=== PATIENT | male | born 1980 | race Caucasian/White ===

== ENCOUNTER 2016-04-16 14:13 | Emergency (ER) | payer MEDICAID ==
[~2016-04-16] VITALS: Ht 175.3 cm; Wt 78.1 kg
--- NOTE | 2016-04-16 15:18 | NUR ---
PT INSISTS THAT HE PICKED UP 1-2 NEW MEDS FROM [facility] EITHER YEST OR DAY BEFORE. [facility] CALLED & THEY DENY ANY NEW MEDS SINCE 03/30/16. CL
[2016-04-16 16:09] VITALS: BP 121/96
== END 2016-04-16 15:35 | disposition home or self-care (01) ==
LOC: EDUNIT# 14:13 → ED 14:15
DX: M79.642 Pain in left hand (principal)
CPT/HCPCS: 73120; 99282

== ENCOUNTER 2016-05-28 11:23 | Emergency (ER) | payer MEDICAID ==
[~2016-05-28] VITALS: Ht 175.3 cm; Wt 80.0 kg
--- OUTSIDE RECORDS SUMMARY | 2016-05-28 11:29 | XMS REPORT | Continuity of Care Document ---
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 [id number] Vanita Araujo [employer] Chief Complaint and Reason for Visit Chief Complaint Pain Reason for Visit [id number] Problems Medical Problems Problem Onset Date Status Nausea and vomiting 03/21/2013 Resolved Fall on same level from slipping, tripping or stumbling ~06/01/2013 Resolved Knee pain ~06/21/2013 Resolved Shoulder pain ~07/25/2013 Resolved Schizoaffective disorder Unknown Active Schizophrenia Unknown Active Adult attention deficit hyperactivity disorder Unknown Active Tardive dyskinesia Unknown Active Asthma ~08/08/2013 Active Vomiting Unknown Resolved Gastroesophageal reflux disease ~09/20/2013 Active Sore of penis ~10/08/2013 Resolved Penis pain ~10/08/2013 Resolved Contusion of shoulder, left Unknown Resolved Shoulder injury Unknown Resolved Anxiety attack ~04/21/2014 Resolved Elevated blood sugar ~06/21/2014 Active Diarrhea ~06/21/2014 Active Abdominal pain ~06/21/2014 Active Pierced tongue infection ~06/28/2014 Active Medications Medication Dose Route Sig Days/Qty Instructions Order Date Discontinued Date Status Albuterol Sulfate Unknown Dose RESPIRATORY (INHALATION) THREE TIMES A DAY 03/21/13 Active Ondansetron 4 Mg ORAL EVERY 6 HOURS 20 Qty One po q6hrs prn significant vomiting 03/21/13 06/03/13 Discontinued Haloperidol Unknown Dose ORAL TWICE A DAY 06/03/13 Active Buspirone Hcl 0 ORAL DAILY 06/03/13 06/21/14 Discontinued Ibuprofen (Motrin) 800 Mg ORAL THREE TIMES A DAY 06/03/13 06/22/13 Discontinued Albuterol Sulfate 8.5 Gm RESPIRATORY (INHALATION) 06/03/13 Discontinued Ibuprofen (Motrin) 200 Mg ORAL THREE TIMES A DAY 06/22/13 09/20/13 Discontinued Acetaminophen 500 Mg ORAL THREE TIMES A DAY 06/22/13 09/20/13 Discontinued Acetaminophen 1,000 Mg ORAL NEEDED 09/20/13 04/13/14 Discontinued Ondansetron 4 Mg ORAL q6 PRN VOMITING 12 Qty 09/20/13 04/13/14 Discontinued Famotidine 20 Mg ORAL TWICE A DAY 20 Qty 09/20/13 10/09/13 Discontinued [Phsyciatric Meds] 0 DAILY 10/09/13 06/21/14 Discontinued Doxycycline Hyclate 100 Mg ORAL TWICE A DAY 20 Qty 10/09/13 04/13/14 Discontinued Naproxen 500 Mg ORAL TWICE A DAY 20 Qty 10/09/13 04/13/14 Discontinued Paroxetine Hcl Unknown Dose ORAL DAILY 06/21/14 Active Metformin Hcl (Glucophage) 500 Mg ORAL DAILY 30 Qty 06/21/14 Active Amoxicillin/Potassium Clav 1 Each ORAL TWICE A DAY 20 Qty 06/28/14 Active Social History No social history. Hospital Discharge Instructions No hospital discharge instructions. Plan of Care Discharge Date 06/28/14 10:55pm Disposition 01 HOME OR SELF-CARE Condition at Discharge Stable Prescriptions See Medications Section Additional Instructions/Education Augmentin as directed. ED SUNITA if any worse. Do not use tongue piercing. Some of your test results may not be complete prior to your leaving the Emergency Department. The Emergency Department is not authorized to give test results over the phone. Please contact the doctor's office listed in this packet of information for your final results. Follow up with your primary care physician or return to the Emergency Department for worsening or worrisome symptoms. * Emergency Department phone number: [phone], x [phone]* MEDICAL RECORD If you need copies of your X-rays, call [phone]. If you need copies of your medical record, including lab results, a signed authorization for release of records will be required. A telephone call for release of Health Information is not allowed. BILLING Billing can sometimes be confusing and frustrating. To help avoid confusion in the future, please take a moment to acquaint yourself with the billing parties for services. SERVICE BILLING [facility] Emergency Room Services [facility] Physician Services [facility] X-[facility] Patients will receive bills for services from the appropriate provider. If you have any questions about your [facility] bill, our staff will be happy to assist you. Please call [phone], and ask for the billing department. THANK YOU for choosing [facility] as your emergency care provider! Functional Status No functional status results. Allergies, Adverse Reactions, Alerts Allergen Type Severity Reaction Status Last Updated No Known Drug Allergies Active 03/21/13 Immunizations No immunization records. Vital Signs Acute Vital Signs Vital Response Date/Time Temperature (Fahrenheit) 97.8 Pulse 115 bpm Respirations 20 Height 5 ft 10 in Weight 177 lb Body Mass Index 25.0 kg/m^2 Results Test Source Date Result Interp. Ref. Range Comments Activated Partial Thromboplast Time September 20, 2013 4:50pm 27.5 SEC N 25.0 -39.0 Alanine Aminotransferase (ALT/SGPT) June 21, 2014 10:51am 23 U/L L 30- 65 Albumin June 21, 2014 10:51am 4.3 g/dL N 3.4-5.0 Albumin/Globulin Ratio June 21, 2014 10:51am 1.653 N 1.1-1.8 Alkaline Phosphatase June 21, 2014 10:51am 66 U/L N 38-126 Amylase Level June 21, 2014 10:51am 54 U/L N 25-115 Anion Gap June 21, 2014 10:51am 14.9 MEQ/L N 3-15 Aspartate Amino Transf (AST/SGOT) June 21, 2014 10:51am 20 U/L N 15-37 BUN/Creatinine Ratio June 21, 2014 10:51am 13 N 10-20 Band Neutrophils % March 21, 2013 12:00pm 0 % N 0-6 Collected by nurse? N Basophils # (Auto) June 21, 2014 10:51am 0.0 10^3uL Basophils % (Manual) March 21, 2013 12:00pm 0 % N 0-2 Collected by nurse? N Basophils (%) (Auto) June 21, 2014 10:51am 0 % N 0-2 Blood Urea Nitrogen June 21, 2014 10:51am 14 mg/dL N 7-18 Calcium Level June 21, 2014 10:51am 9.6 mg/dL N 8.8-10.8 Calculated Osmolality June 21, 2014 10:51am 274 mosm/L L 280-300 Carbon Dioxide Level June 21, 2014 10:51am 21 mmol/L L 22-29 Chloride Level June 21, 2014 10:51am 107 mmol/L N 98-108 Creatinine June 21, 2014 10:51am 1.07 mg/dL N 0.8-1.5 Differential Total Cells Counted March 21, 2013 12:00pm 100 Collected by nurse? N Eosinophils # March 21, 2013 12:00pm 0.0 # Collected by nurse? N Eosinophils # (Auto) June 21, 2014 10:51am 0.1 10^3uL Eosinophils % (Manual) March 21, 2013 12:00pm 0 % N 0-4 Collected by nurse? N Eosinophils (%) (Auto) June 21, 2014 10:51am 1 % N 0-4 Gastric Fluid Occult Blood March 21, 2013 1:50pm Positive H Negative Glucose Level June 21, 2014 10:51am 211 mg/dL DH 70-110 Hematocrit June 21, 2014 10:51am 45.10 % N 39.00-50.00 Hemoglobin June 21, 2014 10:51am 15.5 g/dL N 13.5-17.0 Influenza Virus Type A Antibody April 21, 2014 1:10pm Negative Influenza Virus Type B Antibody April 21, 2014 1:10pm Negative Lipase June 21, 2014 10:51am 81 U/L N 23-300 Lymphocytes # March 21, 2013 12:00pm 1.1 # Collected by nurse? N Lymphocytes # (Auto) June 21, 2014 10:51am 2.6 X10^3 Lymphocytes % (Manual) March 21, 2013 12:00pm 24 % N 20-46 Collected by nurse? N Lymphocytes (%) (Auto) June 21, 2014 10:51am 28 % N 20-46 Mean Corpuscular Hemoglobin June 21, 2014 10:51am 27.6 PG N 26.0-34.0 Mean Corpuscular Hemoglobin Concent June 21, 2014 10:51am 34.4 g/dL N 31.0-37.0 Mean Corpuscular Volume June 21, 2014 10:51am 80 FL N 80-100 Mean Platelet Volume June 21, 2014 10:51am 10.3 FL H 6.0-9.5 Monocytes # March 21, 2013 12:00pm 0.8 # Collected by nurse? N Monocytes # (Auto) June 21, 2014 10:51am 0.4 X10^3 Monocytes % (Manual) March 21, 2013 12:00pm 21 % H 3-11 Collected by nurse? N Monocytes (%) (Auto) June 21, 2014 10:51am 5 % N 3-11 Neutrophils # March 21, 2013 12:00pm 2.5 # Collected by nurse? N Neutrophils # (Auto) June 21, 2014 10:51am 6.1 X10^3 Neutrophils (%) (Auto) June 21, 2014 10:51am 66 % N 51-67 Platelet Count June 21, 2014 10:51am 263 10^3uL N 150-450 Potassium Level June 21, 2014 10:51am 4.0 mmol/L N 3.5-5.1 Prothromb Time International Ratio September 20, 2013 4:50pm 1.0 N 0.8-1.4 Prothrombin Time September 20, 2013 4:50pm 13.6 SEC N 12.3-14.4 Rapid Plasma Reagin October 09, 2013 1:00am Non-reactive () Red Blood Count June 21, 2014 10:51am 5.62 10^6uL H 4.50-5.50 Red Cell Distribution Width June 21, 2014 10:51am 13.0 % N 11.8-15.6 Segmented Neutrophils % March 21, 2013 12:00pm 55 % N 51-67 Collected by nurse? N Sodium Level June 21, 2014 10:51am 138 mmol/L N 135-150 Total Bilirubin June 21, 2014 10:51am 0.7 mg/dL DN 0.1-1.0 Total Protein June 21, 2014 10:51am 6.9 g/dL N 6.4-8.5 Ur Tricyclic Antidepressants Screen June 21, 2014 10:40am Negative Negative Urine collection method Clean Catch Urine Amphetamines Screen June 21, 2014 10:40am Negative Negative Urine collection method Clean Catch Urine Barbiturates Screen June 21, 2014 10:40am Negative Negative Urine collection method Clean Catch Urine Benzodiazepines Screen June 21, 2014 10:40am Negative Negative Urine collection method Clean Catch Urine Bilirubin June 21, 2014 10:40am Negative Negative Urine collection method Clean Catch Urine Blood October 09, 2013 12:00am Negative Negative Urine collection method Clean Catch Urine Clarity June 21, 2014 10:40am Clear Urine collection method Clean Catch Urine Cocaine Screen June 21, 2014 10:40am Negative Negative Urine collection method Clean Catch Urine Collection Type June 21, 2014 10:40am Clean catch Urine collection method Clean Catch Urine Color June 21, 2014 10:40am Yellow Urine collection method Clean Catch Urine Glucose (UA) June 21, 2014 10:40am Trace H Negative Urine collection method Clean Catch Urine Ketones June 21, 2014 10:40am Negative Negative Urine collection method Clean Catch Urine Leukocyte Esterase June 21, 2014 10:40am Negative Negative Urine collection method Clean Catch Urine Methamphetamines Screen June 21, 2014 10:40am Negative NEGATIVE Urine collection method Clean Catch Urine Nitrite June 21, 2014 10:40am Negative Negative Urine collection method Clean Catch Urine Opiates Screen June 21, 2014 10:40am Negative Negative Urine collection method Clean Catch Urine Phencyclidine Screen June 21, 2014 10:40am Negative Negative Phencyclidine testing by this method can showcross-reactivity with several common medications such as venlafaxine, dextromethorphan, and diphenhydramine. Submission of any positive sample for confirmatory testing is recommended. Urine Propoxyphene Screen June 21, 2014 10:40am Negative NEGATIVE Results of this screen are qualitative and are presumptiveresults. A more specific method (i.e. GC/MS) must be used if confirmation of results is indicated. Urine Protein June 21, 2014 10:40am Negative Negative Urine collection method Clean Catch Urine Specific [place] June 21, 2014 10:40am 1.025 1.005-1.030 Urine collection method Clean Catch Urine Urobilinogen June 21, 2014 10:40am 0.2 mg/dL 0.2-1.0 Urine collection method Clean Catch Urine pH June 21, 2014 10:40am 5.5 5.0 - 8.0 Urine collection method Clean Catch White Blood Count June 21, 2014 10:51am 9.28 10^3uL N 4.0-11.0 Estimat Glomerular Filtration Rate June 21, 2014 10:51am 96.9 Urine Oxycodone Screen June 21, 2014 10:40am Negative NEGATIVE Urine collection method Clean Catch Blood Morphology Comment March 21, 2013 12:00pm Normal NORMAL Collected by nurse? N Urine Methadone Screen June 21, 2014 10:40am Negative Negative Urine collection method Clean Catch Urine Cannabinoids Screen June 21, 2014 10:40am Positive H Negative Urine collection method Clean Catch Estimated GFR (Non- June 21, 2014 10:51am 80.1 Urine RBC (Auto) June 21, 2014 10:40am Negative Negative Urine collection method Clean Catch Absolute Band Neutrophils March 21, 2013 12:00pm 0.0 # Collected by nurse? N Calcium/Ionized Calcium Ratio June 21, 2014 10:51am 4.3 mg/dL N 3.8- 4.6 Procedures Procedure Status Date Provider(s) ROUTINE VENIPUNCTURE completed 06/21/14 X-RAY EXAM SERIES ABDOMEN completed 06/21/14 COMPREHEN METABOLIC PANEL completed 06/21/14 DRUG SCREEN CLASS LIST A completed 06/21/14 URINALYSIS AUTO W/O SCOPE completed 06/21/14 ASSAY OF AMYLASE completed 06/21/14 ASSAY OF LIPASE completed 06/21/14 COMPLETE CBC W/AUTO DIFF WBC completed 06/21/14 MEASURE BLOOD OXYGEN LEVEL completed 06/21/14 HYDRATE IV INFUSION ADD-ON completed 06/21/14 THER/PROPH/DIAG INJ IV PUSH completed 06/21/14 EMERGENCY DEPT VISIT completed 06/21/14 completed 06/21/14 completed 06/21/14 Encounters Encounter Location Date/Time Departed Emergency Room [facility] 06/28/14 10:17pm Departed Emergency Room [facility] 06/21/14 10:25am Recent Diagnosis
--- NOTE | 2016-05-28 12:04 | NUR ---
This nurse calls [facility] Control - relays information to Dr. Funes
[2016-05-28 12:11] LABS: MEAN CORPUSCULAR HEMOGLOBIN 27.8 PG (26.0-34.0); MEAN CORPUSCULAR HGB CONC 34.3 g/dL (31.0-37.0); MEAN CORPUSCULAR VOLUME 81 FL (80-100); MEAN PLATELET VOLUME 9.7 FL (6.0-9.5); MONOCYTES % (AUTO) 10 % (3-11); NEUTROPHILS % (AUTO) 63 % (51-67); PLATELET COUNT 241 10^3uL (150-450); WHITE BLOOD COUNT 10.92 10^3uL (4.0-11.0)
[2016-05-28 12:12] LABS: BASOPHILS % (AUTO) 1 % (0-2); EOSINOPHILS # (AUTO) 0.1 10^3uL; EOSINOPHILS % (AUTO) 1 % (0-4); LYMPHOCYTES # (AUTO) 2.8 X10^3; MONOCYTES # (AUTO) 1.1 X10^3; NEUTROPHILS # (AUTO) 6.9 X10^3
[2016-05-28 12:20] LABS: ALBUMIN 4.1 g/dL (3.4-5.0); ALKALINE PHOSPHATASE 76 U/L (38-126); BUN/CREATININE RATIO 17 (10-20); CALCULATED IONIZED CALCIUM 3.8 mg/dL (3.8-4.6); TOTAL PROTEIN 7.7 g/dL (6.4-8.5)
[2016-05-28 13:05] LABS: AMPHETAMINE SCREEN, URINE Positive (Negative); METHAMPHETAMINE SCREEN URINE S POSITIVE (NEGATIVE)
[2016-05-28 13:06] LABS: CANNABINOID SCREEN, URINE Positive (Negative); OPIATE SCREEN URINE Negative (Negative); PROPOXYPHENE STAT NEGATIVE (NEGATIVE)
[2016-05-28 13:56] VITALS: BP 104/81
== END 2016-05-28 13:58 | disposition home or self-care (01) ==
LOC: EDUNIT# 11:23 → ED 11:24
DX: T43.591A Poisoning by other antipsychotics and neuroleptics, accidental (unintentional), initial encounter (principal); Y92.149 Unspecified place in prison as the place of occurrence of the external cause; R47.81 Slurred speech
CPT/HCPCS: 36415; 80053; 80307; 85025; 93005; 99283; G0480; 80320; 80329; 93010

== ENCOUNTER → 2016-05-28 | Outpatient (CLI) | payer MEDICAID ==
[~2016-05-28] MED LIST: ACET-168 PO; ACET-2264 PO; ACET1TAB43 PO; ALB0.5V INH; ALBU8.5H2 IH; ALBU8.5H4 IH; ALBU8.5H6 INH; AMOX-358 PO; AMOX500C5 PO; AZIT250T81 PO; BACI1PAC7 TOP; BSP5T PO; CEPH-507 PO; CLN.1T; CLN.2T PO; CYCL10TA45 PO; DESV100T; DESV100T PO; DESV25TA PO; DESV50TA PO; DICL100G13 TOP; DOXY100C2 PO; FAMO-119 PO; FLUT1BLS INH; HALO50AM2 IM; HLP.5T PO; HLP5T PO; HYDR-3702 PO; HYDR-3811 PO; IBP200T PO; IBP800T PO; KETO10TA PO; LURA60TA PO; LURA80TA PO; METF500T4 PO; MIRT15TA3 PO; NAPR500T3 PO; NAPR500T8 PO; ONDA4TAB8 PO; PARO10TA24 PO; PRAZ1CAP PO; QTP100T PO; QUET200T28; QUET200T28 PO; RISP1TAB3 PO; SULF1TAB35 PO; TRM50T PO; [UNRECOGNIZED DRUG - REMARK]
== END ==
LOC: EMS 11:10
PROVIDERS: ATTEND Emergency Medicine
DX: R47.81 Slurred speech (principal); T43.595A Adverse effect of other antipsychotics and neuroleptics, initial encounter; Y92.149 Unspecified place in prison as the place of occurrence of the external cause

== ENCOUNTER → 2016-06-02 | Outpatient (CLI) | payer MEDICAID | LOC: LAB 16:15 | PROVIDERS: ATTEND Family Medicine | DX: Z53.8 Procedure and treatment not carried out for other reasons (principal) ==

== ENCOUNTER → 2016-06-05 | Outpatient (CLI) | payer MEDICAID | LOC: LAB 11:32 | PROVIDERS: ATTEND Family Medicine | DX: K52.9 Noninfective gastroenteritis and colitis, unspecified (principal) | CPT/HCPCS: 87507 ==

== ENCOUNTER 2016-07-17 15:07 | Outpatient (RCR) | payer MEDICAID ==
--- NOTE | 2016-07-26 09:13 | PT/OT/ST INITIAL EVALUATION ---
Department of Health and Human Services Form Approved [facility] Care Financing Administration OMB No. [id number] PLAN OF CARE/ASSESSMENT FOR OUTPATIENT REHABILITATION (Complete for Initial Claims Only) 1. PATIENT'S NAME Michoacano Araujo III 2. ACC # [id number] 3. HICN 4. PROVIDER NO. [id number] 5. TYPE: PT 6. PRIOR HOSPITALIZATION 7. PRIMARY DX Status post sub acromial decompression, distal clavicle resection and biceps tenodesis 8. SECONDARY DX 9. ONSET DATE 06/29/2016 10. REFERRAL DATE 07/10/2016 11. SOC. DATE 07/17/2016 12. TIME OF EVAL Start time 15:14 End time 16:[address] Farhad Figueredo 13. CHARGES/UNITS 72108 Evaluation moderate complexity 42819 Therapeutic exercise 1 unit Vasopneumatic device 14. G CODES 15. PRIOR LEVEL OF FUNCTION; PERTINENT HISTORY (Prior therapy results, reason for referral.) S: Reason for referral: Prior to therapy the patent consented to today's evaluation and treatment. The patient is a 35-year-old male referred here by Dr. Farhad Figueredo status post left shoulder sub acromial decompression, distal clavicle resection and biceps tenodesis. The patient notes he underwent surgery on 06/29/2016. He was in a sling for the first couple weeks but that has been removed on his follow up appointment which also he had philip removed. The patient reports no specific limitations were provided to him from the physician. The patient reports he initially fell on the ice over the winter onto his left shoulder but also sustained a prior injury in 2005 to this shoulder as well. The patient did note a pop at time of injury. Prior level of function: The patient is left handed. Prior to surgery he did have diminished use of left upper extremity and difficulty using this arm for dressing and grooming. The patient is disabled per his report and for leisure activities enjoys spending time with his family and friends. Current level of function: The patient reports he is able to sleep with decrease interruption. He also has improving use of his left upper extremity with no specific limitations with dressing or grooming tasks at this time. The patient does have pain with left upper extremity movements. Therapy history: The patient denies any therapy for this and specific issue in the recent past. Pain level: Current pain level is 6/10 present around the left shoulder joint. Pain is aggravated with movement and relieved with Tylenol. Diagnostic testing: No diagnostic testing has been completed since patient's surgery. Past medical history: The patient has a history of seizures with his last seizure being when he was 8-years-old. He also notes significant psychiatric history including have schizophrenia paranoia, and depression. The patient also has a history of hypertension which he manages with medication. He also has sleeping disruption. Past medical history also includes right rotator cuff dysfunction. Current medications: The patient reports taking Tylenol only for pain, Theraquil, Haldol when needed to treat his schizophrenia and paranoia, and hypertension medication. Activity level: The patient reports as high. Personal health rating: The patient reports as fair. Patient's Goal: The patient's goal is to be able to use his left upper extremity to its full capacity. 16. INITIAL ASSESSMENT/SAFETY PRECAUTIONS/MEDICAL COMPLICATIONS (Level of function at start of care. Be specific, use objective measures, list problems.) O: APPEARANCE, OBSERVATION AND GAIT: The patient presents to physical therapy without use of a sling. He demonstrates significant scapular winging bilaterally greatest on the right. He has bilateral scapular abduction rounded shoulder positioning greatest on the left. The left humeral head is slightly anterior as well. The patient's incision is well healed in the left shoulder. He demonstrates no specific difficulty with donning and doffing his shirt for evaluation. PALPATION: The patient has significant edema in the left anterior shoulder and into the triceps and biceps. He has tenderness to palpation of the biceps tendon muscle belly as well as the left parascapular musculature. SPECIAL TESTS: The patient scores a 45.5 percent disability on the Quick DASH index. RANGE OF MOTION/FLEXIBILITY: Right shoulder flexion 160 degrees, abduction 151 degrees, internal rotation functionally to T8, external rotation functionally to T6. Left shoulder flexion passively to 70 degrees, abduction to 50 degrees. STRENGTH: Left upper extremity strength not assessed this date secondary to physical therapist clarifying patient's surgical procedure. Right shoulder flexion 4/5, abduction 5/5, shoulder internal and external rotation on the right 4/5, elbow flexion and extension 5/5. TODAY'S TREATMENT: Today's treatment consisted of educating the patient on the findings of the evaluation and our treatment plan. The physical therapist initiated therapeutic exercise including passive range of motion to the left shoulder into flexion and abduction as well as initiated cervical range of motion exercises, stretching of the upper trapezius and levator scapulae and scapular retraction and shoulder roll off. The patient was provided a copy of these exercises to be completed at home. The patient did tolerate treatment well with only mild increase in left shoulder pain which was addressed with the use of vasopneumatic device for 15 minutes. 17. 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 The patient demonstrates decreased left shoulder range of motion and impaired strength as well as edema present in the left shoulder region and to the biceps. The patient has a fair outcome however obstacles to delivery of care may include patient's psychiatric past. OUTCOME ASSESSMENTS: The patient scores a 45.5 percent disability on the Quick DASH index. SHORT TERM GOALS: Therapy goals times 3 weeks: 1. The patient will regain left shoulder flexion to be a minimum of 130 degrees, abduction to a minimum of 120 degrees and functional internal rotation to be a minimum of T1 internal rotation to L5. 2. The patient will report independence and compliance with his home exercise program. 3. The patient will improve left shoulder flexion, abduction, internal and external rotation to be a minimum of 3+/5. 4. The patient will demonstrate proper scapular stabilization with 50 percent or greater of his therapy activities without verbal cues. Therapy goals times 6 weeks: 1. The patient will regain left shoulder flexion, abduction, internal and external rotation, range of motion to be within 90 percent of the right in order to have improved functional use of the left upper extremity. 2. The patient will a regain left shoulder flexion, abduction, internal and external rotation, strength as well as elbow flexion and extension, strength to be a minimum of 4+/5. 3. The patient will score less than or equal to 15 percent on the Quick DASH index. 4. The patient will report pain less than or equal to 2/10 with functional use of the left upper extremity. 5. The patient will demonstrate the ability to properly lift 10 pounds from waist to floor as well as report being able to return to functional drumming activities which he enjoys without being limited secondary to pain. The diagnoses, prognosis, risks and expected outcomes were discussed with this patient and he is agreeable with today's established plan of care. Justification for moderate complexity includes patient's longstanding history of left shoulder pain secondary to prior injury, his significant psychiatric past, and current pain level. P: Plan to see this patient 2 times a week for 6 weeks in order to address left shoulder pain, impaired range of motion and strength secondary to recently undergoing a surgical procedure. The physician wrote on the script to emphasize shoulder girdle strength, scapular stabilization, range of motion and modalities as indicated. Modalities may be used including iontophoresis, vasopneumatic device, and electrical stimulation as long as these are explained to the patient and he has agreeable to their use. Manual therapy will include joint mobilization however gentle joint mobilization should be utilized at first secondary presence of a composite through the left shoulder joint, myofascial release in deep tissue and soft tissue mobilization to improve muscle mobility and flexibility emphasis on scapular mobilization as well. Therapeutic exercise will emphasize on regaining pain free active range of motion followed by progressive strengthening of the parascapular musculature, rotator cuff musculature as well as the biceps as he progresses further from surgery. Neuromuscular education will be utilized as well as functional training to improve proper muscle firing patterns with functional tasks. The patient was provided a home exercise program and this will be progressed as needed. Thank you for the referral of this patient. 18. FREQUENCY 2 times/week 19. DURATION 6 weeks 20. FUNCTIONAL LEVEL (End of claim period) 21. PHYSICIAN SIGNATURE ? ON FILE OR ENTER HERE: 22. DATE: I certify the need for these services furnished under this plan of care and if for partial hospitalization. 23. CERTIFICATION FROM THROUGH [id number]
== END 2016-07-24 09:29 | disposition home or self-care (01) ==
LOC: PT 15:07
PROVIDERS: ATTEND Orthopaedic Surgery
DX: Z98.890 Other specified postprocedural states (principal); M25.512 Pain in left shoulder